=== PATIENT | male | born 1990 | race Caucasian/White ===

== ENCOUNTER 2016-09-02 18:46 | Emergency (ER) | payer OTHER ==
[2016-09-02] MEDS ORDERED: Ibuprofen TAB* 600 MG PO ONE (19:29)
--- NOTE | 2016-09-02 20:35 | RAD ---
Indication: Scrotal injury and pain. Real-time sonography of the scrotum was performed. The right testis measures 4.3 x 2.2 x 3.0 cm. No intratesticular masses are noted. Normal flow is noted in the right testis. The epididymis measures 11 x 8 mm. Small right hydrocele is noted. The left testis measures 4.2 x 2.3 x 3.1 cm. No intratesticular masses are noted. The epididymis measures 11 x 10 mm. Small left hydrocele is noted. IMPRESSION: No intratesticular masses are noted in either testis. Both testes appear normal.
--- NOTE | 2016-09-02 20:55 | ED ---
Debra Keller Salem, scribed for Aly Vazquez MD on 09/02/16 at 1936 . GI/ HPI - HPI Summary HPI Summary: Patient is a 25 y/o male who presents to the ED with a right testicular pain since yesterday. He reports tenderness in groin area and increased pain and edema in right testicle. He states that he was at Urgent Care and was sent here for concern about changes in blood flow. Pt reports that he was elbowed in the groin area yesterday when playing around with friends. However, pain was not immediate. Pt expresses difficulty walking after palpation to testicle during physical exam at Urgent Care. He has no other complaints. - History of Current Complaint Chief Complaint: EDUrogenitalProblems Time Seen by Provider: 09/02/16 19:23 Stated Complaint: RIGHT TESTICLE PAIN Hx Obtained From: Patient Onset/Duration: Started Days Ago, Traumatic, Still Present Timing: Constant, Lasting Days Severity: Moderate Current Severity: Moderate Pain Intensity: 6 Location of Pain: Groin Additional Locations for Males: Testicles Associated Signs and Symptoms: Positive: Negative Aggravating Factor(s): Nothing Alleviating Factor(s): Nothing - Allergy/Home Medications Allergies/Adverse Reactions: Allergies Allergy/AdvReac Type Severity Reaction Status Date / Time No Known Allergies Allergy Verified 07/10/16 12:50 PMH/Surg Hx/FS Hx/Imm Hx Previously Healthy: Yes - Surgical History Surgery Procedure, Year, and Place: None. Infectious Disease History: Denies: Traveled Outside the [place] in Last 30 Days - Family History Known Family History: Negative: Cardiac Disease, Hypertension, Diabetes - Social History Hx Substance Use: No Substance Use Type: Reports: None Review of Systems Negative: Fever Positive: other - Right testicular pain. Tenderness in groin area. Increased pain and edema in right testicle. All Other Systems Reviewed And Are Negative: Yes Physical Exam Triage Information Reviewed: Yes Vital Signs On Initial Exam: Initial Vitals Temp Pulse Resp BP Pulse Ox 98.7 F 72 18 125/68 99 09/02/16 18:49 09/02/16 18:49 09/02/16 18:49 09/02/16 18:49 09/02/16 18:49 Vital Signs Reviewed: Yes Appearance: Positive: Well-Appearing, No Pain Distress Skin: Positive: Warm, Skin Color Reflects Adequate Perfusion, Dry Head/Face: Positive: Normal Head/Face Inspection Eyes: Positive: EOMI, JOSÉ MIGUEL ENT: Positive: Normal ENT inspection Neck: Positive: Supple, Nontender Respiratory/Lung Sounds: Positive: Clear to Auscultation, Breath Sounds Present Cardiovascular: Positive: RRR Abdomen Description: Positive: Nontender, Soft Bowel Sounds: Positive: Present Male Genital Exam: Positive: other - No acute distress. Soft and non-tender inguinal canal. Scrotum ecchymosis and edema on right side. Testicle intact and smooth. Tender in scrotum on right side. No lesions. Musculoskeletal: Positive: Normal, Strength/ROM Intact Neurological: Positive: Normal, Sensory/Motor Intact, Alert, Oriented to Person Place, Time Psychiatric: Positive: Affect/Mood Appropriate Diagnostics - Vital Signs Vital Signs Temp Pulse Resp BP Pulse Ox 09/02/16 18:49 98.7 F 72 18 125/68 99 - Laboratory Lab Statement: Any lab studies that have been ordered have been reviewed, and results considered in the medical decision making process. - Ultrasound No standard instances Ultrasound Interpretation Completed By: Radiologist - TESTICULAR IMPRESSION: No intratesticular masses are noted in either testis. Both testes appear normal. Re-Evaluation - Re-Evaluation First Eval Re-Evaluation Time: 20:47 Comment: Informed pt of imaging result and of plan. GIGU Course/Dx - Course Course Of Treatment: NO CRITICAL CARE TIME Assessment/Plan: DISCUSSSED RESULTS OF US WITH PATIENT. NO SIGNS OF TESTICULAR TORSION. DISCUSSED TO TETURN IF WORSE OR ANY QUESTIONS OR CONCERNS. DISCHARGE HOME STABLE. - Diagnoses Provider Diagnoses: Scrotal injury, Testicular injury, Hydrocele Discharge - Discharge Plan Condition: Stable Disposition: HOME Patient Education Materials: Scrotal Pain (ED), Testicle Pain (ED), Hydrocele ( ED) Referrals: Grey SPRAGUE,Chago Nina [Primary Care Provider] - Additional Instructions: FOLLOW UP WITH YOUR DOCTOR. RETURN TO THE EMERGENCY DEPARTMENT FOR ANY WORSENING OF YOUR CONDITION OR QUESTIONS OR CONCERNS. The documentation as recorded by the Debra iverson Salem accurately reflects the service I personally performed and the decisions made by me, Aly Vazquez MD.
[2016-09-02 21:21] VITALS: BP 129/72
== END 2016-09-02 21:20 | disposition home or self-care (01) ==
LOC: ED 18:46
DX: S39.94XA Unspecified injury of external genitals, initial encounter (principal); N50.811 Right testicular pain; N43.3 Hydrocele, unspecified; W50.0XXA Accidental hit or strike by another person, initial encounter; Y93.9 Activity, unspecified; Y92.9 Unspecified place or not applicable; Y99.9 Unspecified external cause status
CPT/HCPCS: 76870; 99285; A9270-GY